=== PATIENT | female | born 1995 ===

== ENCOUNTER 2017-12-14 12:48 | Emergency (ER) | payer OTHER ==
[~2017-12-14] VITALS: Ht 170.2 cm; Wt 104.3 kg
[~2017-12-14 12:48] MED LIST: DESV50TA9 PO; LEVO1TBD8; ONDA4TAB97 PO; OXYC-865 PO
--- NOTE | 2017-12-14 12:57 | ER Report ---
History and Physical Time Seen By MD: 12:56 Hx. of Stated Complaint: PT REPORTS A MIGRAINE 55 HOURS, NAUSEA, DIZZINESS, LOSS OF BALANCE, PAIN IN BACK AND AROUND R SIDE, BLURRED VISION HPI/ROS CHIEF COMPLAINT: Migraine headache HISTORY OF PRESENT ILLNESS: This is a 22-year-old female who presents to the emergency department for a typical type of migraine headache. Patient states that about 3 days ago she developed a migraine type headache that started at the base of the skull on the right side that wraps around on the right side of her head into the front. These started last August and she's had several since then, this is not the worst headache she has had. Patient is tearful in the emergency department. Has taken Imitrex as well as Zofran with little to no relief. She is photophobic. Patient denies chest pain, shortness breath, diarrhea, dysuria. Patient does have nausea related to the headache but no vomiting. REVIEW OF SYSTEMS: Constitutional: No fever, no chills. Eyes: No discharge. ENT: No sore throat. Cardiovascular: No chest pain, no palpitations. Respiratory: No cough, no shortness of breath. Gastrointestinal: As above. Genitourinary: No hematuria. Musculoskeletal: No back pain. Skin: No rashes. Neurological: As above. Allergies: Uncoded Allergies: LAXATIVE (Adverse Reaction, Unknown, 09/02/17) Home Meds Active Scripts Ondansetron Hcl (ZOFRAN) 4 Mg Tablet, 4 MG PO Q8H for Nausea, #15 TAB 0 Refills Prov:IKE ETIENNE MD 09/02/17 Reported Medications Sumatriptan Succinate (SUMATRIPTAN SUCCINATE) 100 Mg Tablet, 100 MG PO ONCE 12/14/17 Discontinued Reported Medications Levonorgestrel-Eth Estradiol (JOLESSA) 1 Each Tbdspk.3mo, QDAY 09/02/17 Desvenlafaxine Succinate (PRISTIQ ER) 50 Mg Tab.er.24h, 50 MG PO QDAY 09/02/17 Discontinued Scripts Oxycodone Hcl/Acetaminophen (PERCOCET 5-325 MG TABLET) 1 Each Tablet, 1 EACH PO Q4H for PAIN, #10 TAB 0 Refills Prov:IKE ETIENNE MD 09/02/17 Past Medical/Surgical History Patient has a past medical and surgical history of migraines, bilateral wrist fractures, left foot fracture, with glasses, left ovarian cyst excision, IUD, jaw surgery, wisdom teeth extraction, tonsillectomy. Reviewed Nurses Notes: Yes Constitutional Vital Sign - Last 24 Hours 12/14/17 12/14/17 12/14/17 12/14/17 12:48 12:52 12:52 13:00 Temp 98.1 Pulse ??? 75 Resp 18 B/P (MAP) 119/73 (88) 119/73 128/77 (94) Pulse Ox 95 O2 Delivery Room Air 12/14/17 12/14/17 12/14/17 12/14/17 13:03 13:18 13:30 13:33 Pulse 71 72 69 B/P (MAP) 110/75 (87) Pulse Ox 95 94 12/14/17 12/14/17 12/14/17 13:48 14:00 14:03 Pulse 66 75 B/P (MAP) 110/64 (79) Pulse Ox 92 93 Physical Exam General Appearance: The patient is alert, has no immediate need for airway protection and no signs of toxicity, tearful. Eyes: Pupils equal, round and reactive no pallor or injection. ENT, Mouth: Mucous membranes are moist. Respiratory: There are no retractions, lungs are clear to auscultation. Cardiovascular: Regular rate and rhythm, no murmurs, clicks or rubs. Gastrointestinal: Abdomen is soft and non tender, no masses, bowel sounds normal. Neurological: Alert and oriented 4. Moving all extremities. Following all commands. No focal neuro deficits. Cranial nerves II through XII intact. Skin: Warm and dry, no rashes. Musculoskeletal: Neck is supple non tender. Extremities are nontender, nonswollen and have full range of motion. DIFFERENTIAL DIAGNOSIS: After history and physical exam differential diagnosis was considered for headache including but not limited to subarachnoid hemorrhage , migraine headache, tension headache and infectious causes such as meningitis, pharyngitis and sinusitis. Medical Decision Making ED Course/Re-evaluation Clinical Indication for ER IV: Hydration, IV Access ED Course The patient was admitted to room. A history of physical pain. Differential diagnoses were considered. IV was started. 1 L normal saline bolus was given. 12.5mg IV Phenergan was given, 30 mg IV Toradol, 5 mg of IV Decadron, 25 mg IV Benadryl. Patient states the headache is significantly improved. She still has a little bit of a posterior headache but is currently sleeping and resting comfortably. Patient states she does still have some mild photophobia but significantly improved. Patient states she feels better and ready to go home and sleep. Patient states she will also follow-up with her primary care provider and will consider following up with neurology as well. Patient and other questions or concerns at this time and was discharged home. Patient was encouraged to return to emergency department for any other concerns or worsening symptoms. Decision to Disposition Date: Dec 14, 2017 Decision to Disposition Time: 14:22 Depart Departure Latest Vital Signs Vital Signs Date Time Temp Pulse Resp B/P (MAP) Pulse Ox O2 Delivery O2 Flow Rate FiO2 12/14/17 14:03 75 93 12/14/17 14:00 110/64 (79) 12/14/17 12:52 98.1 18 Room Air Impression: Primary Impression: Migraine headache Condition: Improved Disposition: HOME OR SELF-CARE Referrals: AUREA ELDRIDGE MD (PCP) Patient Instructions: Migraine Headache (ED) Additional Instructions: Drink plenty of fluids. Get plenty of rest. Continue current medications. Consider following up in [place] with the Neuro clinic for headaches. Follow up with your primary care as scheduled. May return to the Ed for worsening symptoms or other needs. Problem Qualifiers Primary Impression: Migraine headache Migraine type: unspecified Status migrainosus presence: without status migrainosus Intractability: not intractable Qualified Codes: G43.909 - Migraine, unspecified, not intractable, without status migrainosus ALAYNA PATTERSON [employer] Dec 14, 2017 12:56
[2017-12-14] MEDS ORDERED: SUMA100T33 PO (12:59)
[2017-12-14] MEDS ORDERED: PROMETHAZINE 25 MG/ML 1 ML AMP IVP ONE (13:05)
[2017-12-14] MEDS ORDERED: diphenhydrAMINE 50 MG/ML VIAL IVP ONE (13:05)
[2017-12-14] MEDS ORDERED: KETOROLAC 30 MG/ML VIAL IVP ONE (13:05)
[2017-12-14] MEDS ORDERED: DEXAMETHASONE SOD PHOS 10MG/ML IVP ONE (13:05)
[2017-12-14 14:00] VITALS: BP 110/64
== END 2017-12-14 14:30 | disposition home or self-care (01) ==
LOC: ER 12:50
DX: G43.909 Migraine, unspecified, not intractable, without status migrainosus (principal)
CPT/HCPCS: 96374; 96375; 99284; J1100; J1200; J1885; J2550